=== PATIENT | female | born 1935 | race Caucasian/White ===

== ENCOUNTER 2017-06-11 06:44 | Inpatient (IN) | payer OTHER, SELFPAY | END 2017-06-12 14:25 | disposition home or self-care (01) | DRG 483 | PROVIDERS: Admitting Provider Orthopaedic Surgery; Visit Provider Orthopaedic Surgery | DX: M75.121 Complete rotator cuff tear or rupture of right shoulder, not specified as traumatic (principal); I44.7 Left bundle-branch block, unspecified; S43.004D Unspecified dislocation of right shoulder joint, subsequent encounter; Z87.891 Personal history of nicotine dependence | CPT/HCPCS: 36415; 73020; 76942; 85027; 97116; 97161; 97165; 97530; 97535; C1776; J1100; J2250; J2405; J2704; J3010; Q0162 ==